=== PATIENT | female | born 1930 | race Caucasian/White ===

== ENCOUNTER 2017-02-11 12:56 | Emergency (ER) | payer MEDICARE, BC ==
[2017-02-11 13:16] VITALS: BP 147/71
--- NOTE | 2017-02-11 13:24 | UC ---
Bite Injury/Animal HPI - HPI Summary HPI Summary: Pt reports that she was bit by her pet cat 1 week ago when she was taking the cat's food bowl away. - History of Current Complaint Chief Complaint: [employer] Stated Complaint: LFT HAND CAT BITE Time Seen by Provider: 02/11/17 13:17 Hx Obtained From: Patient ?: No Severity Currently: Moderate Severity Initially: Mild Onset/Duration: Gradual Onset, Lasting Days, Still Present, Worse Since - onset 1 week ago Type of Bite: Pet Has Animal Been Immunized?: Yes Character: Abrasion/Laceration Aggravating Factor(s): Exertion Associated Signs And Symptoms: Positive: Swelling Animal Available for Observation: Yes Animal Control Notified: No - Risk Factors Infection/Sepsis Risk Factors: Delay in Initial Treatment - Allergies/Home Medications Allergies/Adverse Reactions: Allergies Allergy/AdvReac Type Severity Reaction Status Date / Time No Known Allergies Allergy Verified 02/11/17 13:16 Home Medications: Home Medications Levothyroxine TAB* [Synthroid 25 MCG TAB*] 02/11/17 [History] PMH/Surg Hx/FS Hx/Imm Hx Previously Healthy: Yes - Surgical History Surgical History: Yes Surgery Procedure, Year, and Place: HYSTERECTOMY - Family History Known Family History: Positive: Cardiac Disease - Social History Occupation: Employed Full-time Lives: With Family Alcohol Use: None Substance Use Type: None Smoking Status (MU): Never Smoked Tobacco Have You Smoked in the Last Year: No - Immunization History Most Recent Tetanus Shot: 01/21/17 Hx Tetanus, Diphtheria Vaccination: Yes Vaccination Up to Date: Yes Review of Systems Constitutional: Negative Skin: Other - erythema Eyes: Negative ENT: Negative Respiratory: Negative Cardiovascular: Negative Gastrointestinal: Negative Genitourinary: Negative Motor: Negative Neurovascular: Negative Musculoskeletal: Edema - left hand swelling surrounding bite area, Myalgia Neurological: Negative Psychological: Negative Is Patient Immunocompromised?: No All Other Systems Reviewed And Are Negative: Yes Physical Exam Triage Information Reviewed: Yes Appearance: Well-Appearing Vital Signs: Initial Vital Signs Temp 97.9 F 02/11/17 13:10 Pulse 117 02/11/17 13:10 Resp 16 02/11/17 13:10 BP 147/71 02/11/17 13:10 Pulse Ox 100 02/11/17 13:10 Vital Signs Reviewed: Yes Eye Exam: Normal ENT Exam: Normal Dental Exam: Normal Neck exam: Normal Respiratory Exam: Normal Cardiovascular: Positive: RRR, Tachycardia Musculoskeletal Exam: Other Musculoskeletal: Positive: Edema @ - left hand, Neurological Exam: Normal Psychological Exam: Normal Skin Exam: Other - mild erythema to left hand Bite Injury Course/Dx - Differential Dx/Diagnosis Differential Diagnosis/HQI/PQRI: Cellulitis, Puncture Provider Diagnoses: cat bite to left hand. infected wound to left hand Discharge - Discharge Plan Condition: Stable Disposition: HOME Prescriptions: Amoxicillin/Clavulanate TAB* [Augmentin TAB 500 mg*] 500 mg PO Q12H #20 tab Patient Education Materials: Animal Bite (ED) Referrals: No Primary Care Phys,NOPCP [Primary Care Provider] - If Needed
== END 2017-02-11 13:30 | disposition home or self-care (01) ==
LOC: UCCORT 12:56
DX: S61.452A Open bite of left hand, initial encounter (principal); L08.9 Local infection of the skin and subcutaneous tissue, unspecified; W55.01XA Bitten by cat, initial encounter; Y93.89 Activity, other specified; Y92.009 Unspecified place in unspecified non-institutional (private) residence as the place of occurrence of the external cause; Y99.9 Unspecified external cause status
CPT/HCPCS: 99212; G0463